=== PATIENT | female | born 1960 ===

== ENCOUNTER 2020-06-16 06:54 | Day surgery (SDC) | payer OTHER | END 2020-06-16 11:45 | disposition home or self-care (01) | LOC: AMB-ENDOS 06:54 | PROVIDERS: ATTEND Colon & Rectal Surgery | DX: K62.89 Other specified diseases of anus and rectum (principal); K64.1 Second degree hemorrhoids; Z20.828 Contact with and (suspected) exposure to other viral communicable diseases ==

== ENCOUNTER 2020-07-25 11:00 | Inpatient (IN) | payer OTHER ==
[~2020-07-25] VITALS: Ht 170.2 cm; Wt 77.1 kg
[2020-07-25] MEDS ORDERED: VASOTEC20 M1 PO (14:10)
== END 2020-08-04 16:15 | disposition home or self-care (01) | DRG 331 ==
LOC: O/R 08-01 05:50 → SURH 08-01 05:50 → RECOVERY 08-01 07:00 → SURH 08-01 11:37
PROVIDERS: ADMIT Colon & Rectal Surgery; ATTEND Colon & Rectal Surgery
PROC: 0DTN4ZZ Resection of Sigmoid Colon, Percutaneous Endoscopic Approach (ICD-10-PCS; principal; 2020-08-01 07:00)
DX: K57.32 Diverticulitis of large intestine without perforation or abscess without bleeding (principal); K29.00 Acute gastritis without bleeding; I11.9 Hypertensive heart disease without heart failure; K62.4 Stenosis of anus and rectum